=== PATIENT | female | born 1985 | race Asian ===

== ENCOUNTER → 2017-03-30 | Day surgery (SDC) | payer OTHER ==
--- NOTE | 2017-03-31 12:07 | PATH ---
Surgical Pathology Report Patient Name: NYLA AMBROSIO [facility]. Rec. #: [id number] /Age/Gender: 1985 (Age: 31) / F Account: [id number] Location: [facility] RADIOLOGY U Taken: 03/30/2017 Received: 03/30/2017 Reported: 03/31/2017 Physicians: Kurt Calero M.D. Specimen(s) Received RIGHT BREAST CORE BIOPSY 9:00, 8CM FN Clinical History Probably benign Final Diagnosis RIGHT BREAST, 9:00 8 CM FROM NIPPLE, ULTRASOUND GUIDED NEEDLE CORE BIOPSY: FIBROADENOMA. Electronically Signed Ricky Barbosa M.D. Gross Description Received in formalin labeled "right breast biopsy 9:00, 8 cmfn," is a 1.8 x 1.6 x 0.2 cm aggregate of multiple rivera-yellow, irregular to cylindrical portions of fibroadipose tissue. The formalin is filtered and the specimen is entirely submitted in one cassette. Time to formalin fixation: 2 minutes Total formalin fixation time: Approximately 8 hours. /03/30/2017 saudi/03/30/2017
== END | disposition home or self-care (01) ==
LOC: FRADUS-SUR 13:06
PROVIDERS: ATTEND Surgery
PROC: 0HBT3ZX Excision of Right Breast, Percutaneous Approach, Diagnostic (ICD-10-PCS; principal; 2017-03-30)
DX: N63 Unspecified lump in breast (principal); D24.2 Benign neoplasm of left breast
CPT/HCPCS: 19083; 88305-TC

== ENCOUNTER 2017-05-15 07:48 | Day surgery (SDC) | payer OTHER ==
[2017-05-08 13:40] VITALS: BMI 22.6
[2017-05-15] MEDS ORDERED: MINERAL OIL/PETROLATUM,WHITE 3.5 GM TUBE ONE (09:29)
[2017-05-15] MEDS ORDERED: PROPOFOL 20 ML ONE (09:30)
[2017-05-15] MEDS ORDERED: MIDAZOLAM HCL 2 MG/2 ML SINGLE DOSE VIAL ONE (09:30)
[2017-05-15] MEDS ORDERED: LIDOCAINE 1%/EPI 1:100000 (20 ML MULTI DOSE VIAL) ONE (11:11)
[2017-05-15] MEDS ORDERED: LIDOCAINE 1%/EPI 1:100000 (50 ML MULTI DOSE VIAL) INF ONE (11:29)
[2017-05-15 12:31] VITALS: PULSE 78
[2017-05-15 14:35] VITALS: BP 116/67; TEMP 98
[2017-05-15] MEDS ORDERED: oxyCODONE HCL 5 MG TABLET PO PRN ×2 (14:59)
[2017-05-15] MEDS ORDERED: ONDANSETRON 4 MG/2 ML VIAL IVPUSH PRN (14:59)
[2017-05-15] MEDS ORDERED: ACETAMINOPHEN 325 MG TABLET (FP) PO PRN (14:59)
[2017-05-15] MEDS ORDERED: LACTATED RINGERS SOLUTION 1,000 ML IV SCH (15:00)
--- NOTE | 2017-05-16 11:01 | OP ---
DATE OF OPERATION: 05/15/2017 PREOPERATIVE DIAGNOSIS: Right breast mass/fibroadenoma. POSTOPERATIVE DIAGNOSIS: Right breast mass/fibroadenoma. PROCEDURE: Wire localization, excision, right breast mass/fibroadenoma, intermediate wound closure (4 cm). OPERATING SURGEON: Max Escalante MD ANESTHESIA: Sincere Beck MD (general) HISTORY: This is a 31-year-old woman who presented with a palpable abnormality involving the outer aspect of the right breast. Imaging demonstrated several solid masses. The palpable mass was the largest, measuring up to 3 cm in size. Percutaneous core biopsy demonstrated fibroadenoma. Plan at this juncture is to proceed with excision of the palpable mass which was biopsy proven to be fibroadenoma. The other masses which are not palpable but appear to be similar in nature will be followed at 6-month intervals with ultrasound. Indications, alternatives, and possible complications reviewed. Consent obtained. PROCEDURE: With the patient in the supine position, and after general anesthesia, the right breast was prepped and draped in sterile fashion using chlorhexidine. The preoperative localization films were reviewed with Dr. Millan prior to the onset of the procedure. A 4-cm curvilinear incision was made in the outer aspect of the right breast in the region of the localizing needle and deepened into the subcutaneous space. Following the needle, the mass was easily encountered. It was excised in its entirety and delivered. The mass was obvious and no specimen radiograph obtained. The excision cavity was palpated and no significant findings encountered otherwise. Adequate hemostasis was ensured. Ultimately, the wound was closed over a 1/4- inch Butler drain. The deeper breast tissue was approximated using interrupted 3-0 chromic sutures. The subcutaneous tissues were approximated with interrupted 4-0 Biosyn sutures. Skin edges were closed using 4-0 Biosyn in the subcuticular space in continuous fashion. Mastisol and Steri-Strips were applied. Drain tacked to the skin. Dressing was applied. Procedure terminated. COUNTS: Needle and instrument counts correct. ESTIMATED BLOOD LOSS: Minimal. SPECIMEN: Right breast mass. Previous percutaneous biopsy consistent with fibroadenoma. IMPLANT: None. DRAIN: One Butler. Patient tolerated the procedure. Procedure was terminated. Kutr [id number] cc: Aneta Tong MD [facility]
--- NOTE | 2017-05-20 14:20 | PATH ---
Surgical Pathology Report Patient Name: NYLA AMBROSIO [facility]. Rec. #: [id number] /Age/Gender: 1985 (Age: 31) / F Account: [id number] Location: [facility] AMBULATORY Taken: 05/15/2017 Received: 05/15/2017 Reported: 05/20/2017 Physicians: Max Escalante M.D. Specimen(s) Received RIGHT BREAST MASS EXCISION Clinical History Right breast mass Final Diagnosis BREAST, RIGHT, MASS, EXCISION: BENIGN BREAST TISSUE SHOWING FIBROADENOMA AND FIBROCYSTIC CHANGES. Electronically Signed Diya Stark M.D. Gross Description Received in formalin labeled "right breast mass excision," is a 4.2 x 3.5 x 3.0 cm irregular, unoriented portion of fibroadipose tissue with a needle localization wire present. There is no skin present. The specimen is inked green and serially sectioned. Sectioning reveals a 3.0 x 2.6 x 1.4 cm rivera, firm to rubbery mass at 0.1 cm from the closest radial margin. No areas of hemorrhage or necrosis are identified. Electroencephalographic Technician sections are sequentially submitted in 5 cassettes. Time to formalin fixation: 1 minute Total formalin fixation time: Approximately 79 hours. 05/18/201705/18/2017
== END 2017-05-15 13:30 | disposition home or self-care (01) ==
LOC: FASU 07:48
PROVIDERS: ATTEND Surgery
PROC: 0HBT0ZX Excision of Right Breast, Open Approach, Diagnostic (ICD-10-PCS; principal; 2017-05-15 10:22)
DX: D24.1 Benign neoplasm of right breast (principal)
CPT/HCPCS: 19281; 84703; 88307-TC; 94760